=== PATIENT | female | born 1955 | race Hispanic/Latino ===

== ENCOUNTER → 2021-06-12 | Outpatient (CLI) | payer MEDICARE | LOC: RAD 09:35 | PROVIDERS: ATTEND Internal Medicine | DX: J41.0 Simple chronic bronchitis (principal) | CPT/HCPCS: 71046 ==

== ENCOUNTER 2022-07-31 21:30 | Observation (INO) | payer OTHER ==
[~2022-07-31] VITALS: Ht 193 cm; Wt 93.0 kg
[2022-07-31 22:06] LABS: BASOPHILS % 0.3 % (0.0-1.0); EOSINOPHILS # (AUTO) 0.2 (0.0-0.4); EOSINOPHILS % 3.7 % (0.0-6.0); HEMATOCRIT 35.1 % (34.2-44.1); HEMOGLOBIN 11.6 g/dL (12.0-16.0); LYMPHOCYTES # (AUTO) 2.7 (1.0-3.2); LYMPHOCYTES % 41.8 % (18.0-39.1); MEAN CORPUSCULAR HEMOGLOBIN 31.3 pg (28-32); MEAN CORPUSCULAR VOLUME 94.6 fL (81-99); MONOCYTES # (AUTO) 0.4 (0.2-0.8); MONOCYTES % 6.8 % (4.4-11.3); NEUTROPHILS # (AUTO) 3.1 (2.1-6.9); NEUTROPHILS % 47.2 % (38.7-80.0); PLATELET COUNT 147 x10e3/uL (140-360); RED BLOOD COUNT 3.71 x10e6/uL (3.6-5.1); RED CELL DISTRIBUTION WIDTH 13.2 % (11.7-14.4)
[2022-07-31 22:30] LABS: ALBUMIN 3.3 g/dL (3.5-5.0); ALBUMIN/GLOBULIN RATIO 0.9 (0.8-2.0); CALCIUM 8.7 mg/dL (8.4-10.2); CREATININE, SERUM 0.96 mg/dL (0.57-1.11)
[2022-07-31 23:02] LABS: AMPHETAMINES SCREEN,URINE NEGATIVE (NEGATIVE); BENZODIAZEPINES SCREEN,URINE NEGATIVE (NEGATIVE); PHENCYCLIDINE SCREEN,URINE NEGATIVE (NEGATIVE)
[2022-07-31] MEDS ORDERED: Morphine 4mg INJECTION 4 MG/ML INJ IV PRN (23:15)
[2022-07-31] MEDS ORDERED: ONDANSETRON HCL INJ 2MG/ML 2ML 2 MG/ML VIAL IV PRN (23:15)
[2022-08-01 10:30] LABS: BASOPHILS % 0.6 % (0.0-1.0); EOSINOPHILS # (AUTO) 0.2 (0.0-0.4); EOSINOPHILS % 3.3 % (0.0-6.0); HEMATOCRIT 42.6 % (38.2-49.6); HEMOGLOBIN 13.6 g/dL (14.0-18.0); LYMPHOCYTES # (AUTO) 2.1 (1.0-3.2); LYMPHOCYTES % 38.2 % (18.0-39.1); MEAN CORPUSCULAR HEMOGLOBIN 31.3 pg (28-32); MEAN CORPUSCULAR HGB CONC 31.9 g/dL (31-35); MEAN CORPUSCULAR VOLUME 98.2 fL (81-99); MONOCYTES # (AUTO) 0.3 (0.2-0.8); MONOCYTES % 5.7 % (4.4-11.3); NEUTROPHILS # (AUTO) 2.8 (2.1-6.9); PLATELET COUNT 149 x10e3/uL (140-360); RED BLOOD COUNT 4.34 x10e6/uL (4.3-5.7); RED CELL DISTRIBUTION WIDTH 13.2 % (11.7-14.4)
[2022-08-01 10:54] LABS: CREATINE KINASE 56 IU/L (30-200)
[2022-08-01 11:17] LABS: ALBUMIN 3.6 g/dL (3.5-5.0); ALBUMIN/GLOBULIN RATIO 0.9 (0.8-2.0); ANION GAP 12.5 mmol/L (8-16); CALCIUM 9.4 mg/dL (8.4-10.2); CREATININE, SERUM 0.86 mg/dL (0.72-1.25); POTASSIUM 4.5 mmol/L (3.5-5.1)
[2022-08-01 11:45] VITALS: BP 125/80; PULSE 77; RESP 18; TEMP 98.1; O2SAT 100
[2022-08-01] MEDS ORDERED: DEXTROSE 50% SYRINGE 50 ML IV PRN (13:15)
[2022-08-01] MEDS ORDERED: LOSARTAN POTASS25 MG PO (14:18)
[2022-08-01] MEDS ORDERED: NEURONTIN300 MG PO (14:18)
[2022-08-01] MEDS ORDERED: LASIX40 MG PO (14:18)
[2022-08-01] MEDS ORDERED: ENTRESTO 24 MG1 EACH PO (14:18)
[2022-08-01] MEDS ORDERED: CARVEDILOL12.5 MG PO (14:18)
[2022-08-01] MEDS ORDERED: CRESTOR10 MG PO (14:18)
[2022-08-01] MEDS ORDERED: PLAVIX75 MG PO (14:18)
[2022-08-01] MEDS ORDERED: LEVEMIR100 UNIT/1 SQ (14:18)
[2022-08-01] MEDS ORDERED: HUMALOG SQ (14:18)
[2022-08-01] MEDS ORDERED: SYNJARDY 12.5-1 EACH PO (14:20)
[2022-08-01 15:00] VITALS: BP 125/80; PULSE 77; RESP 18; TEMP 98.1; O2SAT 100
[2022-08-01] MEDS ORDERED: ONDANSETRON HCL 4 MG ORAL DISINTEGRATING TAB PO PRN (16:30)
[2022-08-01] MEDS ORDERED: INSULIN LISPRO 100 UNIT/1 ML 3ML VIAL SQ SCH (16:30)
[2022-08-01] MEDS ORDERED: GABAPENTIN 300 MG CAP PO SCH (21:00)
[2022-08-01] MEDS ORDERED: INSULIN GLARGINE 100 UNITS/ML VIAL SQ SCH (21:00)
[2022-08-01] MEDS ORDERED: SIMVASTATIN 40 MG TAB PO SCH (21:00)
[2022-08-02] MEDS ORDERED: LOSARTAN POTASSIUM 25 MG TAB PO SCH (06:00)
[2022-08-02] MEDS ORDERED: CLOPIDOGREL BISULFATE 75 MG TAB PO SCH (09:00)
[2022-08-02] MEDS ORDERED: FUROSEMIDE 40 MG TAB PO SCH (09:00)
== END 2022-08-01 18:43 | disposition home or self-care (01) ==
LOC: ER 21:35 → EDSEX 23:08 → ERHOLD 23:08 → MED/SURG 08-01 11:25
PROVIDERS: ADMIT Internal Medicine Cardiovascular Disease; ATTEND Internal Medicine
DX: R07.89 Other chest pain (principal); I25.10 Atherosclerotic heart disease of native coronary artery without angina pectoris; Z95.5 Presence of coronary angioplasty implant and graft; I11.9 Hypertensive heart disease without heart failure; E11.65 Type 2 diabetes mellitus with hyperglycemia; E78.5 Hyperlipidemia, unspecified; Z79.4 Long term (current) use of insulin
CPT/HCPCS: 36415 ×2; 71045; 80053 ×2; 80307; 82550 ×2; 82948; 83690; 83880; 84484 ×2; 85025 ×2; 93005; 99284; G0378 ×2; U0002

== ENCOUNTER → 2022-08-11 | Outpatient (CLI) | payer OTHER ==
[~2022-08-11] MED LIST: CARVEDILOL12.5 MG PO; CRESTOR10 MG PO; ENTRESTO 24 MG1 EACH PO; HUMALOG SQ; LASIX40 MG PO; LEVEMIR100 UNIT/1 SQ; LOSARTAN POTASS25 MG PO; METHOCARBAMOL500 MG PO; NEURONTIN300 MG PO; PLAVIX75 MG PO; SYNJARDY 12.5-1 EACH PO
== END ==
LOC: EDSEX → DX 09:47
PROVIDERS: ATTEND Internal Medicine
DX: Z00.00 Encounter for general adult medical examination without abnormal findings (principal); Z13.820 Encounter for screening for osteoporosis
CPT/HCPCS: 77080

== ENCOUNTER 2022-08-15 08:23 | Emergency (ER) | payer OTHER ==
[~2022-08-15] VITALS: Ht 193 cm; Wt 93.0 kg
[~2022-08-15 08:23] MED LIST changes: -METHOCARBAMOL500 MG PO
[2022-08-15 08:25] VITALS: O2SAT 99
[2022-08-15] MEDS ORDERED: METHOCARBAMOL500 MG PO (08:38)
== END 2022-08-15 09:28 | disposition home or self-care (01) ==
LOC: ER 08:28
DX: M79.18 Myalgia, other site (principal); Z79.84 Long term (current) use of oral hypoglycemic drugs; Z79.899 Other long term (current) drug therapy; Z79.4 Long term (current) use of insulin; Z79.02 Long term (current) use of antithrombotics/antiplatelets; I25.10 Atherosclerotic heart disease of native coronary artery without angina pectoris; E78.5 Hyperlipidemia, unspecified; I10 Essential (primary) hypertension; E11.9 Type 2 diabetes mellitus without complications
CPT/HCPCS: 99283

== ENCOUNTER → 2023-11-25 | Day surgery (SDC) | payer OTHER ==
[2023-11-22 10:47] LABS: BASOPHILS % 0.5 % (0.0-1.0); EOSINOPHILS # (AUTO) 0.4 (0.0-0.4); EOSINOPHILS % 4.2 % (0.0-6.0); HEMATOCRIT 38.9 % (38.2-49.6); HEMOGLOBIN 11.8 g/dL (14.0-18.0); LYMPHOCYTES # (AUTO) 2.6 (1.0-3.2); LYMPHOCYTES % 30.8 % (18.0-39.1); MEAN CORPUSCULAR HEMOGLOBIN 30.5 pg (28-32); MEAN CORPUSCULAR HGB CONC 30.3 g/dL (31-35); MEAN CORPUSCULAR VOLUME 100.5 fL (81-99); MONOCYTES # (AUTO) 0.5 (0.2-0.8); MONOCYTES % 5.4 % (4.4-11.3); NEUTROPHILS # (AUTO) 4.9 (2.1-6.9); NEUTROPHILS % 58.6 % (38.7-80.0); PLATELET COUNT 203 x10e3/uL (140-360); RED BLOOD COUNT 3.87 x10e6/uL (4.3-5.7)
[2023-11-22 11:01] LABS: ANION GAP 14.2 mmol/L (8-16); CREATININE, SERUM 1.23 mg/dL (0.72-1.25); POTASSIUM 4.2 mmol/L (3.5-5.1)
[~2023-11-25] MED LIST changes: +BALANCED SALT SOLN (OPTH) 15 ML BTL IO ONE; +BUPIVACAINE HC 0.75% PF 10ML VIAL INJ ONE; +COREG3.125 MG PO; +CYCLOPENTOLATE HCL 2% OPTH SOLN 2 ML BTL OP ONE; +EPINEPHRINE HCL 1:1000 1ML 1 MG/ML AMP ONE; +FENOFIBRATE145 MG PO; +GATIFLOXACIN(OPTH) 5 ML LIQD ONE; +LIDOCAINE 2% /EPINEPHRINE 20 ML SDV INJ ONE; +LIDOCAINE HCL 2% LOCAL INJ 5 ML SDV VIAL INJ ONE; +LIDOCAINE HCL-PF 4% 40 MG/1 ML 5ML AMP ONE; +METHOCARBAMOL500 MG PO; +NOVOLOG100 UNIT/1 SC; +OZEMPIC0.25 MG/02 SC; +PHENYLEPHRINE HCL 2 ML DROPS ONE; +POVIDONE IODINE 5% (OPTH) 30 ML BTL ONE; +PROPOFOL IV EMULSION 10 MG/ML 20 ML VIAL ONE
[2023-11-25] MEDS: LACTATED RINGER'S 1,000 ML ONE (12:50)
[2023-11-25 14:14] VITALS: TEMP 97.2
[2023-11-25 14:35] VITALS: BP 148/71; PULSE 80; RESP 18; O2SAT 99
== END | disposition home or self-care (01) ==
LOC: OR 08:25
PROVIDERS: ATTEND Ophthalmology
DX: H25.11 Age-related nuclear cataract, right eye (principal); E11.9 Type 2 diabetes mellitus without complications; I10 Essential (primary) hypertension; E78.5 Hyperlipidemia, unspecified; Z01.810 Encounter for preprocedural cardiovascular examination; Z01.812 Encounter for preprocedural laboratory examination; Z79.02 Long term (current) use of antithrombotics/antiplatelets; Z79.84 Long term (current) use of oral hypoglycemic drugs; Z79.85 Long-term (current) use of injectable non-insulin antidiabetic drugs; Z79.4 Long term (current) use of insulin; Z79.899 Other long term (current) drug therapy; Z86.73 Personal history of transient ischemic attack (TIA), and cerebral infarction without residual deficits
CPT/HCPCS: 36415 ×2; 66984; 80048; 82948; 85025; 93005; J0171; J2003; J2004; J2704; J7121; V2632

== ENCOUNTER → 2023-12-23 | Outpatient (REF) | payer OTHER ==
[~2023-12-23] MED LIST changes: -BALANCED SALT SOLN (OPTH) 15 ML BTL IO ONE; -BUPIVACAINE HC 0.75% PF 10ML VIAL INJ ONE; -CYCLOPENTOLATE HCL 2% OPTH SOLN 2 ML BTL OP ONE; -EPINEPHRINE HCL 1:1000 1ML 1 MG/ML AMP ONE; -GATIFLOXACIN(OPTH) 5 ML LIQD ONE; -LIDOCAINE 2% /EPINEPHRINE 20 ML SDV INJ ONE; -LIDOCAINE HCL 2% LOCAL INJ 5 ML SDV VIAL INJ ONE; -LIDOCAINE HCL-PF 4% 40 MG/1 ML 5ML AMP ONE; -PHENYLEPHRINE HCL 2 ML DROPS ONE; -POVIDONE IODINE 5% (OPTH) 30 ML BTL ONE; -PROPOFOL IV EMULSION 10 MG/ML 20 ML VIAL ONE
== END ==
LOC: RAD 14:54
PROVIDERS: ATTEND Internal Medicine
DX: L97.519 Non-pressure chronic ulcer of other part of right foot with unspecified severity (principal); M77.8 Other enthesopathies, not elsewhere classified

== ENCOUNTER → 2024-01-21 | Outpatient (REF) | payer OTHER | LOC: RAD 14:49 | PROVIDERS: ATTEND Internal Medicine | DX: S39.92XA Unspecified injury of lower back, initial encounter (principal); W19.XXXA Unspecified fall, initial encounter | CPT/HCPCS: 72110 ==

== ENCOUNTER → 2024-09-14 | Outpatient (REF) | payer MEDICARE ==
[~2024-09-14] MED LIST changes: +METOPROLOL TARTRATE 25 MG TAB ONE
[2024-09-14 09:54] LABS: EST GLOMERULAR FILTRATION RATE 90.0 ML/MIN (>=60)
== END ==
LOC: CT 08:46
PROVIDERS: ATTEND Internal Medicine Cardiovascular Disease
DX: I25.10 Atherosclerotic heart disease of native coronary artery without angina pectoris (principal)
CPT/HCPCS: 36415; 82565; 84520